=== PATIENT | male | born 1995 ===

== ENCOUNTER 2021-10-06 17:25 | Outpatient (REF) | payer SELFPAY ==
[2021-10-06 19:09] LABS: HCT 40.3 % (40.0-50.0); HGB 13.5 g/dL (13.5-17.5); MCH 30.1 pg (27.0-33.0); MCHC 33.5 % (32.0-36.0); MCV 89.8 fL (80-95); MPV 9.1 fL (8.0-11.0); Platelet Count 329 10^3/uL (130-400); RBC 4.49 10^6/uL (4.36-5.78); RDW 13.8 % (11.8-14.1); RDW-SD 46.1 fL; WBC 6.75 10^3/uL (4.4-10.8)
[2021-10-06 20:04] LABS: ALT 22 U/L (16-63); AST 20 U/L (15-37); Alkaline Phosphatase 72 U/L (46-116); Anion Gap 11.8 mmol/L (3-11); BUN 13 mg/dL (7-18); Bilirubin, Total 0.3 mg/dL (0.2-1.0); CO2 26.2 mmol/L (21.0-32.0); CREATININE 0.9 mg/dL (0.70-1.30); Calcium 8.9 mg/dL (8.5-10.1); Chloride 101 mmol/L (98-107); Glucose 109 mg/dL (74-106); Potassium 4.1 mmol/L (3.5-5.1); Sodium 139 mmol/L (136-145); Total Protein 7.4 g/dL (6.4-8.2)
[2021-10-10 10:23] LABS: HIV-1/2 Ag & Ab Screen Negative (Negative)
[2021-10-10 11:07] LABS: Hepatitis A Antibody IgM Negative (Negative); Hepatitis B Core Antibody Negative (Negative); Hepatitis B surface Ag Negative (Negative); Hepatitis C Ab w Rflx HCV PCR Reactive (Negative)
[2021-10-11 20:03] LABS: HCV Genotype 1a (Undetected)
[2021-10-12 13:13] LABS: HCV RNA Detection Quantitative 770 IU/mL (Undetected); HCV RNA Qualitative Detected (Undetected)
== END 2021-10-06 17:26 | disposition home or self-care (01) ==
LOC: NCHCN 17:25
PROVIDERS: Visit Provider Physician Assistant
DX: B19.20 Unspecified viral hepatitis C without hepatic coma (principal); Z11.4 Encounter for screening for human immunodeficiency virus [HIV]; Z11.59 Encounter for screening for other viral diseases
CPT/HCPCS: 80053; 85027; 86704; 86709; 86803; 87340; 87389; 87522; 87521